=== PATIENT | female | born 1990 | race Hispanic/Latino ===

== ENCOUNTER 2020-02-24 03:47 | Inpatient (IN) | payer BC ==
[2020-02-24 04:33] VITALS: BMI 30.2
--- NOTE | 2020-02-24 04:33 | PDOC.LDHP ---
Labor and Delivery H&P HPI: Patient of Dr Gómez Time: 429 30 yo G1 at 39 weeks 4 days with CTX, on and off. Was xhecked Monday at [facility] and was told was 1cm there by her report. NO VB, no LOF, good FM. No fever or cough. Review of Systems: complete ROS completed and as per HPI Current gestational age (weeks): 39 (4 days) Due date: 02/27/20 Dating criteria: last menstrual period Grav: 1 OB History Details: none Current complications: none Abnormal US findings: No Current medications: pre- vitamins Previous surgical history: none - Physical Exam Vital signs reviewed and normal: yes (127/73 98.4 82) General: NAD Lungs: CTAB Abdomen: gravid Extremeties: no edema FHT: category 1 [place] contractions every: every 2-4 min - Vaginal Exam cm dilated: 2 Effacement: 75% Station: -3 - Assessment Latent labor at full term - Plan Plan: observation in L&D (WE will obs for 2 hrs and make a disposition then. May admit as already 39 weeks with CTX. Await recheck. Check GBS result)
[2020-02-24] MEDS ORDERED: Butorphanol Tartrate 1 MG/ML VIAL SLOW IVP PRN (04:42)
[2020-02-24] MEDS ORDERED: Ibuprofen 800 MG TAB PO PRN (04:42)
[2020-02-24] MEDS ORDERED: Promethazine HCl 25 MG/ML VIAL IM PRN ×3 (04:42→20:02)
[2020-02-24] MEDS ORDERED: NS / Oxytocin 40 units/1000ml 1,000 ML IV PRN (04:42)
[2020-02-24] MEDS ORDERED: Lidocaine 1% (PF) 30 ML VIAL SC PRN (04:42)
[2020-02-24] MEDS ORDERED: hydrALAZINE 20 MG/ML VIAL SLOW IVP PRN ×2 (04:42→20:02)
[2020-02-24] MEDS ORDERED: HYDROcodone/Acetaminophen 5/325 mg Tablet PO PRN ×3 (04:42→20:02)
[2020-02-24] MEDS ORDERED: Ondansetron PF 4 MG/2 ML Vial IVP PRN ×3 (04:42→20:02)
--- NOTE | 2020-02-24 04:47 | PDOC.EVN ---
Event Note - Event Note Event Note: At bedside now: As CTXs are painful and every 5 minutes with favorable CX and good gestational dating we will admit noew for labor. Augment if needed later this AM. latent phase discussed with her and . Pain meds. I will tiger text Dr Gómez at 0700 or so
[2020-02-24 05:45] LABS: Hemoglobin 13.1 g/dL (12.0-16.0); Mean Corpuscular HGB CONC 32.2 g/dL (32.0-36.0); Mean Corpuscular Hemoglobin 28.6 pg (27.0-31.0); Mean Corpuscular Volume 88.9 fL (78.0-98.0); Mean Platelet Volume 10.9 fL (7.4-10.4); Platelet Count 130 thou/uL (130-400); RBC Distribution Width 15.2 % (11.5-14.5); Red Blood Cell (RBC) Count 4.57 mill/uL (4.20-5.40); White Blood Cell (WBC) Count 11.2 thou/uL (4.8-10.8)
[2020-02-24] MEDS: Lactated Ringer's 1,000 ML IV SCH ×2 (05:45→08:17)
[2020-02-24 06:27] LABS: Syphilis Antibody Nonreactive (Nonreactive); Syphilis Antibody Index 0.04 S/CO (<1.00 Non-Reactive)
[2020-02-24 06:28] LABS: HBSAg Index 0.19 S/CO (0-0.99); HIV (1/2) Antibody/Antigen Non-Reactive (NonReactive); HIV 1/2 INDEX 0.21 S/CO (<1.00); Hep B Surf Ag Non-Reactive S/CO (NonReactive)
[2020-02-24] MEDS ORDERED: Fentanyl 4 mcg/Bup 0.1% Cadd 0 ML ONE (06:46)
[2020-02-24] MEDS ORDERED: Fentanyl 4 mcg/Bup 0.1% Cadd 100 ML ONE ×2 (06:57→15:32)
[2020-02-24] MEDS ORDERED: NS w/ Oxytocin 10 units 500 ML IV SCH (07:45)
[2020-02-24] MEDS ORDERED: Bupivacaine 0.25% HCL 30 ML VIAL ONE (08:58)
[2020-02-24] MEDS ORDERED: Acetaminophen 325 MG TAB PO PRN (18:50)
[2020-02-24] MEDS ORDERED: EPHEDRINE 25 MG/5 ML SYRINGE SLOW IVP PRN (18:50)
[2020-02-24] MEDS ORDERED: Naloxone HCl 0.4 mg/ml Vial IVP PRN ×2 (18:50)
[2020-02-24] MEDS ORDERED: Lactated Ringer's 500 ML IV PRN (18:50)
[2020-02-24] MEDS ORDERED: diphenhydrAMINE 50 MG/ML VIAL IVP PRN (18:50)
[2020-02-24] MEDS ORDERED: Communication Order-Pharmacy FS SCH (19:00)
[2020-02-24] MEDS ORDERED: Fentanyl 4 mcg/Bupivacaine 0.1% Cassette 100 ML EPIDURAL SCH (19:00)
[2020-02-24] MEDS ORDERED: Bisacodyl 10 MG SUPP PR PRN (20:02)
[2020-02-24] MEDS ORDERED: diphenhydrAMINE 25 MG CAP PO PRN (20:02)
[2020-02-24] MEDS ORDERED: Milk Of Magnesia 30 ML UDCUP PO PRN (20:02)
[2020-02-24] MEDS ORDERED: Preparation H Ointment 28 GM TUBE PR PRN (20:02)
[2020-02-24] MEDS ORDERED: Lanolin Ointment 7 GM TUBE TOP PRN (20:02)
[2020-02-24] MEDS ORDERED: NS / Oxytocin 40 units/1000ml 1,000 ML IV SCH (20:02)
[2020-02-24] MEDS ORDERED: Benzocaine-Menthol 82.5 ML CAN TOP PRN (20:02)
[2020-02-24] MEDS: Docusate Calcium (SURFAK) 240 MG CAP PO SCH (22:49)
[2020-02-24] MEDS: Ibuprofen 800 MG TAB PO SCH (22:49)
[2020-02-25] MEDS: Ibuprofen 800 MG TAB PO SCH ×3 (06:00→22:33)
--- NOTE | 2020-02-25 08:28 | PDOC.PP ---
Post Progress Note Post Day #: 1 PO intake tolerated: yes Flatus: yes Ambulation: yes Vital Signs (12 hours) Temp Pulse Resp BP Pulse Ox 02/25/20 07:21 97.9 F 90 20 94/55 L 99 02/25/20 05:57 97.6 F 89 12 114/63 99 02/25/20 01:36 98.2 F 89 12 117/65 100 02/24/20 21:21 98.5 F 89 14 133/73 99 Weight Weight 160 lb Result Diagrams: 02/24/20 05:36 Additional Labs: Post Labs Blood Type O POSITIVE 02/24/20 05:58 Hep Bs Antigen Non-Reactive S/CO (NonReactive) 02/24/20 05:36 - Assessment/Plan Post day 1. Doing well. Ok for discharge if baby released at 24 hours. f/ u 6 week post ...
[2020-02-25] MEDS ORDERED: Adacel (T-DAP) 0.5 ML SYRINGE IM ONE (09:00)
[2020-02-25] MEDS: Ferrous Sulfate 325 MG TAB PO SCH ×2 (09:04→09:05)
[2020-02-25] MEDS: Prenatal Vitamin 1 TAB PO SCH (09:28)
[2020-02-25] MEDS: Docusate Calcium (SURFAK) 240 MG CAP PO SCH ×2 (09:28→22:32)
[2020-02-25] MEDS: HYDROcodone/Acetaminophen 5/325 mg Tablet PO PRN ×2 (09:30→16:08)
[2020-02-26] MEDS: Ibuprofen 800 MG TAB PO SCH (05:17)
[2020-02-26] MEDS: Ferrous Sulfate 325 MG TAB PO SCH (07:33)
[2020-02-26 07:36] VITALS: BP 112/69; TEMP 98
[2020-02-26] MEDS: Prenatal Vitamin 1 TAB PO SCH (08:43)
[2020-02-26] MEDS: Docusate Calcium (SURFAK) 240 MG CAP PO SCH (08:43)
== END 2020-02-26 11:55 | disposition home or self-care (01) | DRG 807 ==
LOC: L&D/OP 03:47 → L&D 05:08 → 3SW 20:27
PROVIDERS: ADMIT Obstetrics & Gynecology; ATTEND Obstetrics & Gynecology
PROC: 10E0XZZ Delivery of Products of Conception, External Approach (ICD-10-PCS; principal; 2020-02-24)
PROC: 0KQM0ZZ Repair Perineum Muscle, Open Approach (ICD-10-PCS; 2020-02-24)
DX: O70.1 Second degree perineal laceration during delivery (principal); Z37.0 Single live birth; Z3A.39 39 weeks gestation of pregnancy
CPT/HCPCS: 36415; 51702; 85027; 86780; 86850; 86900; 86901; 87340; 87389; 99285; J2590; S0020